=== PATIENT | female | born 1965 | race Caucasian/White ===

== ENCOUNTER 2024-07-02 09:10 | Day surgery (SDC) | payer OTHER ==
[~2024-07-02 09:10] MED LIST: Metoclopramide 10 MG/2 ML SDV IV PRN
[2024-07-02] MEDS: Sodium Chloride 0.9% 1,000 ML IV SCH (09:30)
[2024-07-02] MEDS ORDERED: Propofol 200 MG/20 ML SDV ONE (10:00)
== END 2024-07-02 11:39 | disposition home or self-care (01) ==
LOC: LB.SDS 09:10
PROVIDERS: ATTEND Surgery
DX: Z12.11 Encounter for screening for malignant neoplasm of colon (principal); D12.3 Benign neoplasm of transverse colon; D12.4 Benign neoplasm of descending colon; K57.30 Diverticulosis of large intestine without perforation or abscess without bleeding; Z80.0 Family history of malignant neoplasm of digestive organs; I10 Essential (primary) hypertension; E87.6 Hypokalemia; Z79.899 Other long term (current) drug therapy
CPT/HCPCS: 88305; J2704; J7030